=== PATIENT | male | born 1995 | race Two or more races ===

== ENCOUNTER 2020-08-12 14:50 | Emergency (ER) | payer OTHER ==
[2020-08-13] MEDS ORDERED: MYLANTA MAXIMU355 ML PO (12:17)
[2020-08-13] MEDS ORDERED: OMEPRAZOLE20 MG PO (12:17)
== END 2020-08-12 16:45 | disposition left against medical advice (07) ==
LOC: ER1 14:50
DX: Z53.21 Procedure and treatment not carried out due to patient leaving prior to being seen by health care provider (principal)

== ENCOUNTER 2020-08-13 06:25 | Emergency (ER) | payer OTHER ==
[2020-08-13 07:46] LABS: HEMOGLOBIN 16.4 gm/dl (14.0-17.5); RED BLOOD COUNT 5.49 M/UL (4.20-5.50); WHITE BLOOD COUNT 11.6 K/UL (4.5-11.0)
[2020-08-13 08:01] LABS: BUN/CREATININE RATIO 9 (0-10)
[2020-08-13] MEDS ORDERED: MYLANTA MAXIMU355 ML PO (12:17)
[2020-08-13] MEDS ORDERED: OMEPRAZOLE20 MG PO (12:17)
== END 2020-08-13 12:30 | disposition home or self-care (01) ==
LOC: ER1 06:25
PROVIDERS: Internal Medicine
DX: K29.70 Gastritis, unspecified, without bleeding (principal); R07.2 Precordial pain; F17.210 Nicotine dependence, cigarettes, uncomplicated
CPT/HCPCS: 36415; 71046; 80053; 82550; 82553; 84484; 85025; 93005; 96374; 99285